=== PATIENT | female | born 1950 | race Caucasian/White ===

== ENCOUNTER 2018-05-30 11:10 | Outpatient (CLI) | payer OTHER ==
--- NOTE | 2018-06-02 09:57 | Mammography Report ---
Reason: SCREENING MAMMO Procedure Date: 05/30/2018 Accession Number: [id number] / [id number] Procedure: ESTHER - Screening Mammo Dig Bilat CPT Code: FULL RESULT: EXAM: Screening Mammo Dig Bilat DATE: 05/30/2018 11:45 AM CLINICAL HISTORY: 68-year-old female with history of late childbearing. TECHNIQUE: Bilateral CC and MLO views were obtained. COMPARISON: 04/25/2016, 07/09/2014, 12/14/2011, 11/30/2010. FINDINGS: The breasts demonstrate heterogeneously dense fibroglandular parenchyma bilaterally. No suspicious masses, clustered microcalcifications, or regions of architectural distortion are identified. IMPRESSION: Negative examination RECOMMENDATION: Routine annual screening unless otherwise clinically indicated. BIRADS CATEGORY negative STANDARD QUALIFYING STATEMENTS: 1. This examination was not reviewed with the aid of Computer-Aided Detection (CAD). 2. A negative or benign imaging report should not delay biopsy if clinically suspicious findings are present. Consider surgical consultation if warrented. More than 5% of cancers are not identified by imaging. 3. Dense breasts may obscure an underlying neoplasm.
== END 2018-05-30 11:11 | disposition home or self-care (01) ==
LOC: DI 11:10
PROVIDERS: ATTEND Physician Assistant
DX: Z12.31 Encounter for screening mammogram for malignant neoplasm of breast (principal)
CPT/HCPCS: 77067

== ENCOUNTER 2019-06-19 09:21 | Outpatient (CLI) | payer OTHER ==
--- NOTE | 2019-06-22 09:22 | Ultrasound Report ---
Reason: POSTMENOPAUSAL, POSTMENOPAUSAL BLEEDIN Procedure Date: 06/19/2019 Accession Number: [id number] / [id number] Procedure: US - Pelvic w/Transvaginal CPT Code: FULL RESULT: EXAM: PELVIC ULTRASOUND EXAM DATE: 06/19/2019 11:01 AM. CLINICAL HISTORY: Postmenopausal, postmenopausal bleeding. COMPARISON: None. TECHNIQUE: Realtime transabdominal pelvic scan performed to identify the uterus and adnexa and as an overview of other pelvic structures, followed by transvaginal scan to provide greater detail of the uterus and adnexa, with static image documentation. FINDINGS: Uterus: 7.3 x 3.4 x 7.5 cm, volume 98.2 cc. Retroverted and retroflexed position. Multiple uterine fibroids are noted. Heterogeneous parenchyma. Masses: Multiple uterine fibroids are noted. Rehab Manager fibroids include the followin. 3.5 x 2.8 x 3 cm intramural right uterine fibroid. Mild internal vascularity. 2. 3.2 x 2.1 x 2.4 cm left lateral uterine intramural fibroid. 3. 2.4 x 2 x 2.5 cm posterior left subserosal fibroid. Mild internal vascularity. 4. 2.7 x 1.7 x 2.6 cm pedunculated superior lateral uterine fibroid. Endometrium: 2 mm. No mass or polyp. Small volume fluid noted endometrial canal. Cervix: Hypoechoic avascular structure with echogenic rim measuring 1.5 x 1.2 x 3 cm is noted in or near the cervix. Right Ovary: Seen only on transvaginal imaging. 1.3 x 0.8 x 1.4 cm, volume 0.8 cc. Normal echotexture and blood flow. Left Ovary: Ovary not seen. No adnexal abnormality. Limitation secondary to bowel gas. Free Fluid: None. Other: None. IMPRESSION: 1. Multiple uterine fibroids as above. 2. Left ovary not seen. Normal right postmenopausal ovary. Normal bilateral adnexa. 3. No endometrial mass or polyp. Endometrium measures 2 mm. Small volume fluid noted in the endometrial canal. No evidence of endometrial carcinoma or hyperplasia. These findings may represent endometrial atrophy in a postmenopausal woman with dysfunctional uterine bleeding. If symptoms persist, patient may benefit from endometrial sampling. 4. Indeterminate hypoechoic structure in or near the cervix measuring 3 cm with hyperechoic rim. This should be amenable to direct visualization. Correlate clinically. RADIA
--- NOTE | 2019-06-22 12:19 | DEXA Report ---
Reason: POSTMENOPAUSAL, POSTMENOPAUSAL BLEEDIN Procedure Date: 06/19/2019 Accession Number: [id number] / [id number] Procedure: DEX - Dexa Spine and/or Hip CPT Code: FULL RESULT: EXAM: Dexa Spine and/or Hip DATE: 06/19/2019 10:53 AM CLINICAL HISTORY: POSTMENOPAUSAL, POSTMENOPAUSAL BLEEDIN TECHNIQUE: Dual energy x-ray absorptiometry (DXA) was performed on a [employer] System. Regions measured are the AP Spine, femoral neck, and if needed forearm. COMPARISON: 04/17/2016. In accordance with the International Society for Clinical Densitometry (ISCD) guidelines, data from previous exams may be reanalyzed using current recommendations and techniques. This is done to allow a more accurate basis for comparison with the current study. FINDINGS: The data for the lumbar spine is as follows: BMD (g/cm/cm) T-SCORE Z-SCORE REGION L1 0.834 -2.5 -0.6 L2 0.943 -2.1 -0.2 L3 0.961 -2.0 -0.1 L4 1.095 -0.9 1.0 TOTAL 0.966 -1.8 0.1 NOTE: All evaluable vertebrae are used for classification The data for the hip is as follows: BMD (g/cm/cm) T-SCORE Z-SCORE REGION Neck 0.831 -1.5 0.3 TOTAL 0.856 -1.2 0.4 NOTE: The femoral neck or total proximal femur, whichever is lowest, is used for classification. DXA RESULTS SUMMARY: Spine SCAN DATE AGE BMD CHANGE VS CHANGE VS PREVIOUS PREVIOUS % 6/19[birth year][age] 0[age]966 0.018 1.9 04/17/2016 66.0 0[age]948 * Denotes significant change at the 95% confidence level. Denotes dissimilar scan types or analysis methods. DXA RESULTS SUMMARY: Hip SCAN DATE AGE BMD CHANGE VS CHANGE VS PREVIOUS PREVIOUS % 6/19[birth year]2019 69.2 0.856 -0.017 -1.9 04/17/2016 66.0 0.873 * Denotes significant change at the 95% confidence level. Denotes dissimilar scan types or analysis methods. IMPRESSION: THE WHO CLASSIFICATION BASED ON THE INTERNATIONAL REFERENCE STANDARD IS OSTEOPENIA. THE FRACTURE RISK IS INCREASED. RECOMMENDATION: Patients with diagnosis of osteoporosis or osteopenia should have regular bone mineral density assessment. For those eligible for Medicare, routine testing is allowed once every 2 years. Testing frequency can be increased for patients who have rapidly progressing disease or for those who are receiving medical therapy to restore bone mass. COMMENT: World Health Organization (WHO) definitions for osteoporosis and osteopenia: NORMAL BMD: T-score at -1.0 or higher, fracture risk is low OSTEOPENIA BMD: T-score between -1.0 and -2.5, fracture risk is increased. OSTEOPOROSIS BMD: T-score at -2.5 or lower, fracture risk is high. National Osteoporosis Foundation recommends: 1. Obtain adequate dietary calcium (at least 1200 mg per day) and vitamin D (400-800 international units per day). 2. Participate, as appropriate, in regular weightbearing and muscle-strengthening exercise. 3. Avoid tobacco use and reduce alcohol and caffeine intake. 4. For more detailed information see the website at www.NOF.org.
== END 2019-06-19 09:22 | disposition home or self-care (01) ==
LOC: DI 09:21
PROVIDERS: ATTEND Physician Assistant
DX: M85.89 Other specified disorders of bone density and structure, multiple sites (principal); Z78.0 Asymptomatic menopausal state; N95.0 Postmenopausal bleeding; D25.1 Intramural leiomyoma of uterus; D25.2 Subserosal leiomyoma of uterus
CPT/HCPCS: 76830; 76856; 77080

== ENCOUNTER 2020-07-05 15:21 | Outpatient (CLI) | payer OTHER ==
--- NOTE | 2020-07-07 15:26 | Mammography Report ---
BILATERAL DIGITAL SCREENING MAMMOGRAM 3D/2D: 07/05/2020 CLINICAL: Routine screening. Comparison is made to exams dated: 05/30/2018 mammogram, 04/25/2016 mammogram, 07/09/2014 mammogram, mammogram, and [facility] The tissue of both breast s is heterogeneously dense. This may lower the sensitivity of mammography. No significant masses, calcifications, or other findings are seen in either breast. There has been no significant interval change. IMPRESSION: NEGATIVE There is no mammographic evidence of malignancy. A 1 year screening mammogram is recommended. This exam was interpreted at Station ID: [id number]. NOTE: For mammograms, a report in lay terms will be sent to the patient. Approximately 15% of breast malignancies will not be visualized mammographically. In the management of a palpable breast mass, a negative mammogram must not discourage biopsy of a clinically suspicious lesion. Electronically Signed By: Juan leblanc/daphne:07/06/2020 09:06:13 ACR BI-RADS Category 1: Negative 3341F PARENCHYMAL PATTERN: (D) - The breast(s) demonstrate(s) heterogeneously dense fibroglandular parboby ma. BI-RADS CATEGORY: (1) - 1 RECOMMENDATION: (ANNUAL) - Recommend routine annual screening mammography. [id number] 1 year screening LATERALITY: (B)
== END 2020-07-05 15:22 | disposition home or self-care (01) ==
LOC: DI 15:21
PROVIDERS: ATTEND Physician Assistant
DX: Z12.31 Encounter for screening mammogram for malignant neoplasm of breast (principal)
CPT/HCPCS: 77063; 77067

== ENCOUNTER 2023-02-05 07:00 | Outpatient (CLI) | payer MEDICARE, OTHER ==
[2023-02-05 20:15] LABS: BILIRUBIN,URINE NEGATIVE (NEGATIVE); GLUCOSE, URINE (UA) NEGATIVE (NEGATIVE); KETONES,URINE (UA) NEGATIVE (NEGATIVE); LEUKOCYTE ESTERASE, URINE NEGATIVE (NEGATIVE); NITRITE,URINE NEGATIVE (NEGATIVE); OCCULT BLOOD,URINE NEGATIVE (NEGATIVE); PROTEIN,URINE NEGATIVE (NEGATIVE); UROBILINOGEN,URINE 0.2 (NORMAL) E.U./dL (NORMAL)
[2023-02-05 20:32] LABS: BACTERIA,URINE None Seen /HPF (None Seen); CLARITY,URINE CLEAR (CLEAR); RBC,URINE None Seen /HPF (0-5); SQUAMOUS EPITHELIAL CELL,UR NONE SEEN (<= Few); WBC,URINE 0-3 /HPF (0-5)
== END 2023-02-05 23:59 | disposition home or self-care (01) ==
LOC: LAB.S 07:00
PROVIDERS: ATTEND Emergency Medicine
DX: R35.0 Frequency of micturition (principal)
CPT/HCPCS: 81001; 87086

== ENCOUNTER 2023-10-15 09:44 | Outpatient (CLI) | payer MEDICARE ==
--- NOTE | 2023-10-15 14:30 | DEXA Report ---
PROCEDURE: Dexa Spine and/or Hip INDICATIONS: ROUTINE SCREENING TECHNIQUE: Dual energy x-ray absorptiometry (DXA) was performed on a [employer] System. Regions measur ed are the AP Spine, femoral neck, and if needed forearm. COMPARISON: 06/19/2019 FINDINGS: Lumbar Spine: Bone Mineral Density: 1.022 g/cm/cm,T score: - -1.5. Since the most recent prior study, there has bee n a statistically significant increase in bone mineral density by 1.8 percent. Left Femoral Neck: Bone Mineral Density: 0.791 g/cm/cm, T score: -1.8. Left Hip: Bone Mineral Density: 0.829 g/cm/cm,T score: -1.4. Since the most recent prior study, there has been a statistically significant decrease in bone mineral density by 3.2 percent. (T score greater or equal to -1.0: NORMAL) (T score from -1.1 to -2.4: OSTEOPENIA) (T score less than or equal to -2.5 to: OSTEOPOROSIS) Impression: By WHO criteria, this patient has low bone density (osteopenia). Interval statistical increase in bone mineral density of the lumbar spine. Interval statistical decre ase in bone mineral density of the hip. Patients with diagnosis of osteoporosis or osteopenia should have regular bone mineral density assess ment. For those eligible for Medicare, routine testing is allowed once every 2 years. Testing frequ ency can be increased for patients who have rapidly progressing disease or for those who are receivin g medical therapy to restore bone mass. Reviewed by: Eliel Tejada MD on 10/15/2023 2:29 PM PST Approved by: Eliel Tejada MD on 10/15/2023 2:29 PM PST Station ID: [id number]
== END 2023-10-15 09:45 | disposition home or self-care (01) ==
LOC: DI 09:44
PROVIDERS: ATTEND Family Medicine
DX: Z00.00 Encounter for general adult medical examination without abnormal findings (principal); M85.89 Other specified disorders of bone density and structure, multiple sites